=== PATIENT | female | born 1980 | race Caucasian/White ===

== ENCOUNTER 2018-07-03 17:47 | Emergency (ER) | payer BC ==
[2018-07-03] MEDS ORDERED: Sodium Chloride 0.9% 10 ML Syringe FLUSH PRN (18:10)
--- NOTE | 2018-07-03 18:31 | EDM.PDOC ---
ED HPI GENERAL MEDICAL PROBLEM - General Chief Complaint: Gastrointestinal Problem Stated Complaint: abdominal pain Time Seen by Provider: 07/03/18 17:56 Source of Information: Reports: Patient History Limitations: Reports: No Limitations - History of Present Illness INITIAL COMMENTS - FREE TEXT/NARRATIVE: Patient reports partial hysterectomy from last week Tuesday. Ovaries were not removed. Procedure was done laparoscopic and pain has only worsened since surgery. Describes pain to lower abdomen/pelvis that is constant and sharp when sitting down. Has had a bowel movement. She does state she has some nausea today. Slight chills. No chest pain, no shortness of breath. No vaginal bleeding. Surgical sites are dry and intact with no redness. Has been able to eat and drink. Is out of pain medications. Onset: Gradual Duration: Getting Worse Location: Reports: Abdomen Quality: Reports: Sharp, Throbbing Severity: Moderate Worsens with: Reports: Movement Associated Symptoms: Reports: Fever/Chills - Related Data Allergies Allergy/AdvReac Type Severity Reaction Status Date / Time Sulfa (Sulfonamide Allergy Rash Verified 07/03/18 19:14 Antibiotics) Home Meds: Home Meds Desvenlafaxine [Desvenlafaxine ER] 100 mg DAILY 07/03/18 [History] Omeprazole 20 mg DAILY 07/03/18 [History] Topiramate 50 mg DAILY 07/03/18 [History] buPROPion [buPROPion XL] 300 mg DAILY 07/03/18 [History] traZODone HCl [Trazodone HCl] 50 mg BEDTIME 07/03/18 [History] ED ROS GENERAL - Review of Systems Review Of Systems: See Below Constitutional: Reports: Chills HEENT: Reports: No Symptoms Respiratory: Reports: No Symptoms Cardiovascular: Reports: No Symptoms Endocrine: Reports: No Symptoms GI/Abdominal: Reports: Abdominal Pain, Nausea : Reports: No Symptoms Musculoskeletal: Reports: No Symptoms Skin: Reports: No Symptoms Neurological: Reports: No Symptoms Psychiatric: Reports: No Symptoms Hematologic/Lymphatic: Reports: No Symptoms Immunologic: Reports: No Symptoms ED EXAM, GI/ABD - Physical Exam Exam: See Below Exam Limited By: No Limitations General Appearance: Alert, WD/WN, No Apparent Distress Eyes: Bilateral: Normal Appearance, EOMI Ears: Normal TMs Nose: Normal Inspection, Normal Mucosa, No Blood Throat/Mouth: Normal Inspection, Normal Lips, Normal Teeth, Normal Gums, Normal Oropharynx, Normal Voice, No Airway Compromise Head: Atraumatic, Normocephalic Neck: Normal Inspection, Supple, Non-Tender, Full Range of Motion Respiratory/Chest: No Respiratory Distress, Lungs Clear, Normal Breath Sounds, No Accessory Muscle Use, Chest Non-Tender Cardiovascular: Normal Peripheral Pulses, Regular Rate, Rhythm, No Edema, No Gallop, No JVD, No Murmur, No Rub GI/Abdominal Exam: Normal Bowel Sounds, Soft, Tender Back Exam: Normal Inspection, Full Range of Motion, NT Extremities: Normal Inspection, Normal Range of Motion, Non-Tender, Normal Capillary Refill, No Pedal Edema Neurological: Alert, Oriented, CN II-XII Intact, Normal Cognition, Normal Gait, Normal Reflexes, No Motor/Sensory Deficits Psychiatric: Normal Affect, Normal Mood Skin Exam: Wound/Incision (puncture sites are clean, dry and intact, no redness) Lymphatic: No Adenopathy Course - Orders/Labs/Meds Orders: Active Orders 24 hr Category Date Time Status Abdomen Pelvis w Cont [CT] Stat Exams 07/03/18 18:10 Ordered CBC WITH AUTO DIFF [HEME] Stat Lab 07/03/18 18:10 Ordered COMPREHENSIVE METABOLIC PN,CMP [CHEM] Stat Lab 07/03/18 18:10 Ordered LACTIC ACID [CHEM] Stat Lab 07/03/18 18:10 Ordered UA W/MICROSCOPIC [URIN] Stat Lab 07/03/18 18:10 Ordered Sodium Chloride 0.9% [Normal Saline] 1,000 ml Med 07/03/18 18:10 Ordered IV ONETIME Sodium Chloride 0.9% [Saline Flush] Med 07/03/18 18:10 Ordered 10 ml FLUSH ASDIRECTED PRN Saline Lock Insert [OM.PC] Routine Oth 07/03/18 18:10 Ordered Medication Orders Sodium Chloride (Normal Saline) 1,000 mls @ 999 mls/hr IV ONETIME ONE Stop: 07/03/18 19:10 Sodium Chloride (Saline Flush) 10 ml FLUSH ASDIRECTED PRN PRN Reason: Keep Vein Open Meds: Medications Generic Name Dose Route Start Last Admin Trade Name Freq PRN Reason Stop Dose Admin Sodium Chloride 1,000 mls @ 999 mls/hr 07/03/18 18:10 Normal Saline IV 07/03/18 19:10 ONETIME ONE Sodium Chloride 10 ml 07/03/18 18:10 Saline Flush FLUSH ASDIRECTED PRN Keep Vein Open Discontinued Medications Generic Name Dose Route Start Last Admin Trade Name Jaylin PRN Reason Stop Dose Admin Morphine Sulfate 4 mg 07/03/18 18:10 Morphine IVPUSH 07/03/18 18:11 ONETIME ONE Ondansetron HCl 4 mg 07/03/18 18:10 Zofran IVPUSH 07/03/18 18:11 ONETIME ONE - Radiology Interpretation Free Text/Narrative:: CT scan is negative for any acute post operative complications, however, incidental finding of left sided renal cell carcinoma has been identified and patient has been informed and all questions answered. Departure - Departure Time of Disposition: 20:17 Disposition: Home, Self-Care 01 Condition: Good Clinical Impression: Post-op pain, Renal cell carcinoma of left kidney - Discharge Information *PRESCRIPTION DRUG MONITORING PROGRAM REVIEWED*: No *COPY OF PRESCRIPTION DRUG MONITORING REPORT IN PATIENT CLAUDIA: No Instructions: Kidney Cancer Forms: ED Department Discharge Additional Instructions: Plan 1. Take pain medications as needed for comfort 2. Follow up as soon as possible for confirmation of possible left sided kidney cancer 3. Continue to ambulate as much as you can without being overactive and causing additional post operative pain 4. Please call the hospital if you have any questions or concerns 5. I did include some kidney cancer information and sent the CT report with you for Burak to look over - Problem List & Annotations (1) Post-op pain SNOMED Code(s): 150925861 Code(s): G89.18 - OTHER ACUTE POSTPROCEDURAL PAIN Status: Acute Priority : Low Current Visit: Yes (2) Renal cell carcinoma of left kidney SNOMED Code(s): 260595588, 307880219 Code(s): C64.2 - MALIGNANT NEOPLASM OF LEFT KIDNEY, EXCEPT RENAL PELVIS Status: Acute Priority: Medium Current Visit: Yes - Problem List Review Problem List Initiated/Reviewed/Updated: Yes - My Orders Last 24 Hours: My Active Orders 07/03/18 18:10 Abdomen Pelvis w Cont [CT] Stat CBC WITH AUTO DIFF [HEME] Stat COMPREHENSIVE METABOLIC PN,CMP [CHEM] Stat LACTIC ACID [CHEM] Stat UA W/MICROSCOPIC [URIN] Stat Sodium Chloride 0.9% [Normal Saline] 1,000 ml IV ONETIME Sodium Chloride 0.9% [Saline Flush] 10 ml FLUSH ASDIRECTED PRN Saline Lock Insert [OM.PC] Routine - Assessment/Plan Last 24 Hours: My Active Orders 07/03/18 18:10 Abdomen Pelvis w Cont [CT] Stat CBC WITH AUTO DIFF [HEME] Stat COMPREHENSIVE METABOLIC PN,CMP [CHEM] Stat LACTIC ACID [CHEM] Stat UA W/MICROSCOPIC [URIN] Stat Sodium Chloride 0.9% [Normal Saline] 1,000 ml IV ONETIME Sodium Chloride 0.9% [Saline Flush] 10 ml FLUSH ASDIRECTED PRN Saline Lock Insert [OM.PC] Routine Assessment:: post operative pain left renal cell carcinoma Plan: Plan 1. Take pain medications as needed for comfort 2. Follow up as soon as possible for confirmation of possible left sided kidney cancer 3. Continue to ambulate as much as you can without being overactive and causing additional post operative pain 4. Please call the hospital if you have any questions or concerns 5. I did include some kidney cancer information and sent the CT report with you for Burak to look over
[2018-07-03] MEDS: Sodium Chloride 0.9% 1,000 ML IV ONE (18:38)
[2018-07-03] MEDS: Ondansetron 4 MG/2 ML SDV IVPUSH ONE (18:39)
[2018-07-03] MEDS: Morphine 4 MG/ML Syringe IVPUSH ONE (18:40)
[2018-07-03 18:51] LABS: CHLORIDE,CL 106 mmol/L (98-107); SODIUM,NA 142 mmol/L (136-145)
[2018-07-03 18:55] LABS: ANION GAP 15.2 mmol/L (10-20)
[2018-07-03] MEDS: Iopamidol 612 MG/ML 100 ML Bottle IVPUSH ONE (19:15)
[2018-07-03] MEDS: Take Home: Acetaminophen/HYDROcodone 325-10 MG, 5 Tab Pack PO ONE (20:21)
--- NOTE | 2018-07-04 12:00 | CT ---
[id number] CT/CT Abdomen Pelvis W IV EXAM: CT Abdomen Pelvis W IV CLINICAL DATA: POSTOPERATIVE PAIN. RECENT HYSTERECTOMY. COMPARISON: NO PREVIOUS SIMILAR EXAM IS AVAILABLE. FINDINGS: There is no postoperative fluid collection in the pelvis. The uterus has been removed. There are cystic changes of the remaining ovaries. Surgery was last week apparently. Discussion was undertaken with the ordering medical care provider at the time of the exam. There is however a malignant upper pole left renal mass measuring about 6 cm in greatest diameter. The gallbladder has been removed. There is no adenopathy or obvious invasion of the left renal vein. The liver and spleen, aorta, adrenals, pancreas are unremarkable. There is no other pathology in the pelvis. The appendix is thought to be normal. Minimal left inguinal adenopathy is seen. IMPRESSION: NO ACUTE POSTOPERATIVE PATHOLOGY WITH REGARD TO THE RECENT HYSTERECTOMY. INCIDENTAL IDENTIFICATION OF A LEFT-SIDED HYPERNEPHROMA. Brian Johnson MD 07/04/18 [id number] Thank you for allowing us to participate in the care of your patient.
== END 2018-07-03 20:30 | disposition home or self-care (01) ==
LOC: VM.ED 17:47
DX: G89.18 Other acute postprocedural pain (principal); R10.2 Pelvic and perineal pain; C64.2 Malignant neoplasm of left kidney, except renal pelvis; Z90.710 Acquired absence of both cervix and uterus; Z79.899 Other long term (current) drug therapy; Z88.2 Allergy status to sulfonamides
CPT/HCPCS: 74177; 80053; 81001; 83605; 85025; 96361; 96374; 96375; 99284-25; A9270-GY; J2270; J2405; J7030; Q9967

== ENCOUNTER 2018-09-07 21:46 | Emergency (ER) | payer BC ==
[2018-09-07 22:57] LABS: ANION GAP 16.6 mmol/L (10-20)
--- NOTE | 2018-09-07 23:10 | EDM.PDOC ---
ED HPI GENERAL MEDICAL PROBLEM - General Chief Complaint: Abdominal Pain Stated Complaint: PAIN IN LEFT SIDE Time Seen by Provider: 09/07/18 21:50 Source of Information: Reports: Patient History Limitations: Reports: No Limitations - History of Present Illness INITIAL COMMENTS - FREE TEXT/NARRATIVE: Patient comes in to the Emergency Department for complaints of left upper quadrant pain. Patient was involved in a horse riding accident approximate 2 weeks ago. Patient states that she was riding her horse the horse on to the right and she felt to the left falling off a horse.and landing on her left side. She denies hitting or head or sustaining any other injuries. She noted that she had discomforting pain right away to the left upper quadrant area. The pain has continued to progress over the course of the last 2 weeks. She also has a known history of a nephrectomy on the left side approximately 2 months ago. She states with the recent surgery and ongoing discomfort she thought she would come to the emergency department for further medical evaluation regarding her injury/pain. Patient denies having any hematuria, nausea, abdominal distention, vomiting, chest pain, or shortness of breath. Patient also denies any recent fevers or illnesses. Patient states she has not noticed any abnormal discomfort and pain in the flank area where her surgery had occurred. Onset: Sudden, Gradual Location: Reports: Abdomen Quality: Reports: Burning, Throbbing Severity: Moderate Improves with: Reports: Immobilization Worsens with: Reports: Movement Context: Reports: Trauma (riding horse) Treatments DIALYSIS PATIENT CARE TECHNICIAN: Reports: Acetaminophen Left Chest Pain Score (Numeric/FACES): 10 - Related Data Allergies Allergy/AdvReac Type Severity Reaction Status Date / Time Sulfa (Sulfonamide Allergy Rash Verified 09/07/18 21:55 Antibiotics) Home Meds: Home Meds Desvenlafaxine [Desvenlafaxine ER] 100 mg DAILY 07/03/18 [History] Omeprazole 20 mg DAILY 07/03/18 [History] Topiramate 50 mg DAILY 07/03/18 [History] buPROPion [buPROPion XL] 300 mg DAILY 07/03/18 [History] traZODone HCl [Trazodone HCl] 50 mg BEDTIME 07/03/18 [History] Past Medical History Gastrointestinal History: Reports: GERD Neurological History: Reports: Migraines Psychiatric History: Reports: Depression - Past Surgical History GI Surgical History: Reports: Cholecystectomy Female Surgical History: Reports: Section, Hysterectomy ED ROS GENERAL - Review of Systems Review Of Systems: ROS reveals no pertinent complaints other than HPI. Constitutional: Reports: No Symptoms HEENT: Reports: No Symptoms Respiratory: Reports: No Symptoms Cardiovascular: Reports: No Symptoms GI/Abdominal: Reports: Abdominal Pain : Reports: No Symptoms. Denies: Frequency, Incontinence, Irregular Menses, Pain, Urgency Musculoskeletal: Reports: No Symptoms ED EXAM, GENERAL - Physical Exam Exam: See Below Exam Limited By: No Limitations General Appearance: Alert, WD/WN, No Apparent Distress Head: Atraumatic, Normocephalic Neck: Normal Inspection, Supple, Non-Tender, Full Range of Motion Cardiovascular: Normal Peripheral Pulses, Regular Rate, Rhythm GI/Abdominal: Tender (left upper quadrant pain with palpation, ) Extremities: Normal Inspection, Normal Range of Motion, No Pedal Edema, Normal Capillary Refill Neurological: Alert, Oriented, Normal Gait Psychiatric: Normal Affect, Normal Mood Skin Exam: Warm, Dry, Intact Course - Vital Signs Last Recorded V/S: Last Vital Signs Temp 37.3 C 09/07/18 21:57 Pulse 97 09/07/18 21:57 Resp 18 09/07/18 21:57 BP 142/94 H 09/07/18 21:57 Pulse Ox 96 09/07/18 21:57 - Orders/Labs/Meds Orders: Active Orders 24 hr Category Date Time Status Abdomen Pelvis wo Cont [CT] Stat Exams 09/07/18 22:03 Taken Labs: Laboratory Tests 09/07/18 09/07/18 Range/Units 22:26 22:26 WBC 7.4 (4.0-10.0) x10^3/uL RBC 4.32 (4.00-5.50) x10^6/uL Hgb 11.9 L (12.0-16.0) g/dL Hct 36.3 (33.0-47.0) % MCV 84.0 (78.0-93.0) fL MCH 27.5 (26.0-32.0) pg MCHC 32.8 (32.0-36.0) g/dL RDW Coeff of Isaura 13.0 (10.0-15.0) % Plt Count 280 (130-400) x10^3/uL Neut % (Auto) 49.8 L (50.0-80.0) % Lymph % (Auto) 39.5 (25.0-50.0) % Cherry % (Auto) 6.9 (2.0-11.0) % Eos % (Auto) 3.4 (0.0-4.0) % Baso % (Auto) 0.4 (0.2-1.2) % Sodium 141 (136-145) mmol/L Potassium 3.6 (3.5-5.1) mmol/L Chloride 105 (98-107) mmol/L Carbon Dioxide 23 (21-32) mmol/L Anion Gap 16.6 (10-20) mmol/L BUN 26 H (7-18) mg/dL Creatinine 1.8 H (0.55-1.02) mg/dL Est Cr Clr Drug Dosing 38.51 mL/min Estimated GFR (MDRD) 32 Glucose 104 (74-106) mg/dL Calcium 8.6 (8.5-10.1) mg/dL Corrected Calcium 9.08 (8.5-10.1) mg/dL Total Bilirubin 0.2 (0.2-1.0) mg/dL AST 9 L (15-37) U/L ALT 26 (14-59) U/L Alkaline Phosphatase 79 (46-116) U/L Total Protein 7.9 (6.4-8.2) g/dL Albumin 3.4 (3.4-5.0) g/dL Globulin 4.5 Albumin/Globulin Ratio 0.76 Departure - Departure Time of Disposition: 23:05 Disposition: Home, Self-Care 01 Condition: Good Clinical Impression: Abdominal wall contusion Qualifiers: Encounter type: initial encounter Qualified Code(s): S30.1XXA - Contusion of abdominal wall, initial encounter - Discharge Information *PRESCRIPTION DRUG MONITORING PROGRAM REVIEWED*: Not Applicable *COPY OF PRESCRIPTION DRUG MONITORING REPORT IN PATIENT CLAUDIA: Not Applicable Instructions: Contusion, [id number] Referrals: Brielle Pate PA-C [Primary Care Provider] - Forms: ED Department Discharge Additional Instructions: 1. rest 2. Ice the area for 20 mins at a time 3-4 times a day 3. Take tylenol as needed for pain 4. Increase your water intake 5. Follow up with PCP if not feeling better in 2 weeks or sooner if symptoms worsen 6. CT scan did not show and acute injuries and labs were negative 7. Call with any questions or concerns - Problem List Review Problem List Initiated/Reviewed/Updated: Yes - My Orders Last 24 Hours: My Active Orders 09/07/18 22:03 Abdomen Pelvis wo Cont [CT] Stat - Assessment/Plan Last 24 Hours: My Active Orders 09/07/18 22:03 Abdomen Pelvis wo Cont [CT] Stat Assessment:: 1. left upper quadrant abdominal pain Plan: 1. labs completed in ER. Results reviewed with the pt. Negative findings 2. Xray completed in ER. Results reviewed with the pt. Negative findings 3. Education given to the patient regarding injury preventions, increase in water intake, OTC pain management, and follow up care. 4. All questions and concerns addressed prior to discharge
--- NOTE | 2018-09-08 08:46 | CT ---
[id number] CT/CT Abdomen Pelvis WO IV EXAM: CT Abdomen Pelvis WO IV CLINICAL DATA: FALL LEFT SIDE NEPHRECTOMY 1 MONTH AGO. COMPARISON STUDY: None. FINDINGS: Lung bases are clear. The liver is unremarkable. The spleen is enlarged measuring up to 14 cm. The gallbladder surgically absent. The pancreas and adrenal glands are unremarkable. There are the left kidney is surgically absent. The right kidney is unremarkable. No renal stones are identified. No hydronephrosis or hydroureter. The gallbladder is surgically absent. Liver, spleen, gallbladder, pancreas, adrenal glands, and kidneys are unremarkable. No bowel obstruction or inflammation. No lymphadenopathy, free fluid, or pneumoperitoneum. The uterus is surgically absent. Scattered changes of spondylosis the spine. No fracture or osseous lesion. IMPRESSION: 1. No acute CT findings within the abdomen or pelvis to explain the patient's symptoms. Piyush Angela DO 09/08/18 0845 Thank you for allowing us to participate in the care of your patient.
== END 2018-09-07 23:10 | disposition home or self-care (01) ==
LOC: VM.ED 21:46
DX: S30.1XXA Contusion of abdominal wall, initial encounter (principal); K21.9 Gastro-esophageal reflux disease without esophagitis; F32.9 Major depressive disorder, single episode, unspecified; V80.010A Animal-rider injured by fall from or being thrown from horse in noncollision accident, initial encounter; Z88.2 Allergy status to sulfonamides; Z79.899 Other long term (current) drug therapy
CPT/HCPCS: 36415; 74176; 80053; 85025; 99284-25

== ENCOUNTER 2018-11-02 18:37 | Emergency (ER) | payer BC, MEDICAID ==
[2018-11-02] MEDS ORDERED: Ondansetron 4 MG/2 ML SDV IVPUSH ONE (19:12)
[2018-11-02] MEDS ORDERED: Sodium Chloride 0.9% 10 ML Syringe FLUSH PRN (19:12)
[2018-11-02] MEDS ORDERED: Sodium Chloride 0.9% 1,000 ML IV SCH (19:15)
--- NOTE | 2018-11-02 19:29 | EDM.PDOC ---
ED HPI GENERAL MEDICAL PROBLEM - General Chief Complaint: Headache Stated Complaint: PAIN AND HEADACHE AFTER INJECTION Time Seen by Provider: 11/02/18 19:05 Source of Information: Reports: Patient History Limitations: Reports: No Limitations - History of Present Illness INITIAL COMMENTS - FREE TEXT/NARRATIVE: Patient presents with complaints of frontal headache, neck pain, nausea. She does have a diagnosed bulged disc between C6-C7. Was seen at the pain clinic this AM for pain injection. [place] fine until 12 noon today. At that time she began having severe headache, neck pain, nausea, sweating, fever. No chest pain , no change in neuro status. Denies abdominal pain. Does have abdominal hernia. Recent surgery to remove left kidney due to cancer. She did tolerate this, however she states the neck pain and hernia are a result secondary to surgery. She Did take extra strength tylenol [employer]. This was non effective. Onset: Today, Sudden Duration: Getting Worse Location: Reports: Head, Neck Severity: Moderate Improves with: Reports: None Worsens with: Reports: Movement Associated Symptoms: Reports: Diaphoresis, Fever/Chills, Headaches Frontal Headache Pain Score (Numeric/FACES): 10 - Related Data Allergies Allergy/AdvReac Type Severity Reaction Status Date / Time Sulfa (Sulfonamide Allergy Rash Verified 11/02/18 19:03 Antibiotics) lobster Allergy Rash Uncoded 11/02/18 19:02 Home Meds: Home Meds Desvenlafaxine [Desvenlafaxine ER] 100 mg PO DAILY 07/03/18 [History] Omeprazole 20 mg PO DAILY 07/03/18 [History] Topiramate 25 mg PO BEDTIME 07/03/18 [History] buPROPion [buPROPion XL] 300 mg PO DAILY 07/03/18 [History] traZODone HCl [Trazodone HCl] 1 - 2 tab PO BEDTIME 07/03/18 [History] Furosemide [Lasix] 20 mg PO DAILY PRN 11/02/18 [History] Gabapentin [Neurontin] 100 mg PO ASDIRECTED 11/02/18 [History] Ondansetron [Zofran ODT] 4 mg PO Q4H PRN 11/02/18 [History] Past Medical History Gastrointestinal History: Reports: GERD Neurological History: Reports: Migraines Psychiatric History: Reports: Anxiety, Depression - Past Surgical History GI Surgical History: Reports: Cholecystectomy Female Surgical History: Reports: Section, Hysterectomy, Nephrectomy Social & Family History - Tobacco Use Smoking Status *Q: Never Smoker - Recreational Drug Use Recreational Drug Use: No ED ROS GENERAL - Review of Systems Review Of Systems: See Below Constitutional: Reports: Fever, Diaphoresis Respiratory: Reports: No Symptoms Cardiovascular: Reports: No Symptoms Endocrine: Reports: No Symptoms GI/Abdominal: Reports: No Symptoms : Reports: No Symptoms Musculoskeletal: Reports: Neck Pain Skin: Reports: Diaphoresis Neurological: Reports: Headache Psychiatric: Reports: No Symptoms Hematologic/Lymphatic: Reports: No Symptoms Immunologic: Reports: No Symptoms - Physical Exam Exam: See Below Exam Limited By: No Limitations General Appearance: Alert, WD/WN, Anxious, Mild Distress Eye Exam: Bilateral Eye: EOMI, Normal Inspection, PERRL Ears: Normal TMs Nose: Normal Inspection, Normal Mucosa, No Blood Throat/Mouth: Normal Inspection, Normal Lips, Normal Teeth, Normal Gums, Normal Oropharynx, Normal Voice, No Airway Compromise Head Exam: Atraumatic, Normocephalic Neck: Normal Inspection Respiratory/Chest: No Respiratory Distress, Lungs Clear, Normal Breath Sounds, No Accessory Muscle Use, Chest Non-Tender Cardiovascular: Normal Peripheral Pulses, Regular Rate, Rhythm, No Edema, No Gallop, No JVD, No Murmur, No Rub GI/Abdominal: Normal Bowel Sounds, Soft, Non-Tender, No Organomegaly, No Distention, No Abnormal Bruit, No Mass Neuro Exam (Abbreviated): Alert, Oriented, CN II-XII Intact, Normal Cognition, Normal Gait, Normal Reflexes, No Motor/Sensory Deficits Back Exam: Normal Inspection, Full Range of Motion, NT Extremities: Normal Inspection, Normal Range of Motion, Non-Tender, No Pedal Edema, Normal Capillary Refill Psychiatric: Normal Affect, Normal Mood Skin Exam: Wound/Incision (injection site to left anterior neck. C/D/I, covered with bandage. No erythema, swelling, ) Course - Vital Signs Last Recorded V/S: Last Vital Signs Temp 37.5 C 11/02/18 18:45 Pulse 124 H 11/02/18 18:45 Resp 18 11/02/18 18:45 BP 140/76 11/02/18 18:45 Pulse Ox 96 11/02/18 18:45 - Orders/Labs/Meds Orders: Active Orders 24 hr Category Date Time Status Cervical Spine wo Cont [CT] Stat Exams 11/02/18 19:05 Ordered Head wo Cont [CT] Stat Exams 11/02/18 19:05 Ordered CULTURE BLOOD [BC] Stat Lab 11/02/18 19:55 Ordered CULTURE BLOOD [BC] Stat Lab 11/02/18 19:55 Ordered Sodium Chloride 0.9% [Normal Saline] 1,000 ml Med 11/02/18 19:15 Ordered IV ASDIRECTED Sodium Chloride 0.9% [Saline Flush] Med 11/02/18 19:12 Ordered 10 ml FLUSH ASDIRECTED PRN Blood Culture x2 Reflex Set [OM.PC] Stat Oth 11/02/18 19:55 Ordered Saline Lock Insert [OM.PC] Routine Oth 11/02/18 19:12 Ordered Medication Orders Sodium Chloride (Normal Saline) 1,000 mls @ 999 mls/hr IV ASDIRECTED ALHAJI Last Admin: 11/02/18 19:42 Dose: 999 mls/hr Sodium Chloride (Saline Flush) 10 ml FLUSH ASDIRECTED PRN PRN Reason: Keep Vein Open Labs: Laboratory Tests 11/02/18 11/02/18 11/02/18 Range/Units 19:15 19:15 19:15 WBC 10.4 H (4.0-10.0) x10^3/uL RBC 4.67 (4.00-5.50) x10^6/uL Hgb 12.9 (12.0-16.0) g/dL Hct 38.8 (33.0-47.0) % MCV 83.1 (78.0-93.0) fL MCH 27.6 (26.0-32.0) pg MCHC 33.2 (32.0-36.0) g/dL RDW Coeff of Isaura 13.4 (10.0-15.0) % Plt Count 261 (130-400) x10^3/uL Neut % (Auto) 92.4 H (50.0-80.0) % Lymph % (Auto) 6.8 L (25.0-50.0) % [place] % (Auto) 0.7 L (2.0-11.0) % Eos % (Auto) 0.0 (0.0-4.0) % Baso % (Auto) 0.1 L (0.2-1.2) % Sodium 138 (136-145) mmol/L Potassium 3.9 (3.5-5.1) mmol/L Chloride 103 (98-107) mmol/L Carbon Dioxide 20 L (21-32) mmol/L Anion Gap 18.9 (10-20) mmol/L BUN 20 H (7-18) mg/dL Creatinine 1.4 H (0.55-1.02) mg/dL Est Cr Clr Drug Dosing 49.51 mL/min Estimated GFR (MDRD) 42 Glucose 216 H (74-106) mg/dL Lactic Acid 3.0 H* (0.4-2.0) mmol/L Calcium 9.1 (8.5-10.1) mg/dL Corrected Calcium 9.42 (8.5-10.1) mg/dL Total Bilirubin 0.3 (0.2-1.0) mg/dL AST 5 L (15-37) U/L ALT 26 (14-59) U/L Alkaline Phosphatase 64 (46-116) U/L C-Reactive Protein 0.4 (<=0.9) mg/dL Total Protein 7.9 (6.4-8.2) g/dL Albumin 3.6 (3.4-5.0) g/dL Globulin 4.3 Albumin/Globulin Ratio 0.84 Urine Color (YELLOW) Urine Appearance (CLEAR) Urine pH (5.0-8.0) Ur Specific [place] Urine Protein (NEGATIVE) mg/dL Urine Glucose (UA) (NEGATIVE) mg/dL Urine Ketones (NEGATIVE) mg/dL Urine Occult Blood (NEGATIVE) Urine Nitrite (NEGATIVE) Urine Bilirubin (NEGATIVE) Urine Urobilinogen (0.2) EU/dL Ur Leukocyte Esterase (NEGATIVE) Urine RBC (NOT SEEN) /HPF Urine WBC (NOT SEEN) /HPF Ur Squamous Epith Cells (NEGATIVE) /HPF Urine Bacteria (NEGATIVE) /HPF Urine Mucus (NEGATIVE) /LPF 11/02/18 Range/Units 19:38 WBC (4.0-10.0) x10^3/uL RBC (4.00-5.50) x10^6/uL Hgb (12.0-16.0) g/dL Hct (33.0-47.0) % MCV (78.0-93.0) fL MCH (26.0-32.0) pg MCHC (32.0-36.0) g/dL RDW Coeff of Isaura (10.0-15.0) % Plt Count (130-400) x10^3/uL Neut % (Auto) (50.0-80.0) % Lymph % (Auto) (25.0-50.0) % [place] % (Auto) (2.0-11.0) % Eos % (Auto) (0.0-4.0) % Baso % (Auto) (0.2-1.2) % Sodium (136-145) mmol/L Potassium (3.5-5.1) mmol/L Chloride (98-107) mmol/L Carbon Dioxide (21-32) mmol/L Anion Gap (10-20) mmol/L BUN (7-18) mg/dL Creatinine (0.55-1.02) mg/dL Est Cr Clr Drug Dosing mL/min Estimated GFR (MDRD) Glucose (74-106) mg/dL Lactic Acid (0.4-2.0) mmol/L Calcium (8.5-10.1) mg/dL Corrected Calcium (8.5-10.1) mg/dL Total Bilirubin (0.2-1.0) mg/dL AST (15-37) U/L ALT (14-59) U/L Alkaline Phosphatase (46-116) U/L C-Reactive Protein (<=0.9) mg/dL Total Protein (6.4-8.2) g/dL Albumin (3.4-5.0) g/dL Globulin Albumin/Globulin Ratio Urine Color Yellow (YELLOW) Urine Appearance Clear (CLEAR) Urine pH 5.5 (5.0-8.0) Ur Specific [place] 1.010 Urine Protein Negative (NEGATIVE) mg/dL Urine Glucose (UA) 500 H (NEGATIVE) mg/dL Urine Ketones Trace H (NEGATIVE) mg/dL Urine Occult Blood Negative (NEGATIVE) Urine Nitrite Negative (NEGATIVE) Urine Bilirubin Negative (NEGATIVE) Urine Urobilinogen 0.2 (0.2) EU/dL Ur Leukocyte Esterase Negative (NEGATIVE) Urine RBC Not seen (NOT SEEN) /HPF Urine WBC Not seen (NOT SEEN) /HPF Ur Squamous Epith Cells Rare (NEGATIVE) /HPF Urine Bacteria Not seen (NEGATIVE) /HPF Urine Mucus Not seen (NEGATIVE) /LPF Meds: Medications Generic Name Dose Route Start Last Admin Trade Name Freq PRN Reason Stop Dose Admin Sodium Chloride 1,000 mls @ 999 mls/hr 11/02/18 19:15 11/02/18 19:42 Normal Saline IV 999 mls/hr ASDIRECTED ALHAJI Administration Sodium Chloride 10 ml 11/02/18 19:12 Saline Flush FLUSH ASDIRECTED PRN Keep Vein Open Discontinued Medications Generic Name Dose Route Start Last Admin Trade Name Freq PRN Reason Stop Dose Admin Ceftriaxone Sodium 1 gm 11/02/18 20:06 11/02/18 20:22 Rocephin IVPUSH 11/02/18 20:07 1 gm STAT ONE Administration Diphenhydramine HCl 25 mg 11/02/18 20:07 11/02/18 20:19 Benadryl IVPUSH 11/02/18 20:08 25 mg ONETIME ONE Administration Lorazepam 1 mg 11/02/18 20:26 11/02/18 20:46 Ativan IVPUSH 11/02/18 20:27 1 mg STAT ONE Administration Methylprednisolone Sodium Succinate 40 mg 11/02/18 20:06 11/02/18 20:20 Solu-Medrol IVPUSH 11/02/18 20:07 40 mg ONETIME ONE Administration Morphine Sulfate 2 mg 11/02/18 20:06 11/02/18 20:21 Morphine IVPUSH 11/02/18 20:07 2 mg ONETIME ONE Administration Ondansetron HCl 4 mg 11/02/18 19:12 11/02/18 19:42 Zofran IVPUSH 11/02/18 19:13 4 mg ONETIME ONE Administration - Radiology Interpretation Free Text/Narrative:: CT head and neck negative for acute process - Re-Assessments/Exams Free Text/Narrative Re-Assessment/Exam: 11/02/18 21:14 Patient started complaining of right cheek numbness and swelling. Additional neuro exam performed, no new neuro deficits. Departure - Departure Time of Disposition: 21:34 Disposition: DC/Tfer to Acute Hospital 02 Condition: Good Clinical Impression: Headache - Discharge Information *PRESCRIPTION DRUG MONITORING PROGRAM REVIEWED*: No *COPY OF PRESCRIPTION DRUG MONITORING REPORT IN PATIENT CLAUDIA: No Referrals: Brielle Pate PA-C [Primary Care Provider] - Forms: ED Department Discharge, Interfacility Transfer EMTALA ED Communication - ED Communication Date/Time Date: 11/02/18 Time Called: 21:19 - Discussed Case With (1) Discussed Case With (1): Admitting Provider (Discussed case with Dr. Campos in ED, Dr. Sahu with neurology and Dr. Huber from pain clinics. Will send patient for additional imaging to rule out vaculature involvement.) - My Orders Last 24 Hours: My Active Orders 11/02/18 19:05 Cervical Spine wo Cont [CT] Stat Head wo Cont [CT] Stat 11/02/18 19:12 Sodium Chloride 0.9% [Saline Flush] 10 ml FLUSH ASDIRECTED PRN Saline Lock Insert [OM.PC] Routine 11/02/18 19:15 Sodium Chloride 0.9% [Normal Saline] 1,000 ml IV ASDIRECTED 11/02/18 19:55 CULTURE BLOOD [BC] Stat CULTURE BLOOD [BC] Stat Blood Culture x2 Reflex Set [OM.PC] Stat - Assessment/Plan Last 24 Hours: My Active Orders 11/02/18 19:05 Cervical Spine wo Cont [CT] Stat Head wo Cont [CT] Stat 11/02/18 19:12 Sodium Chloride 0.9% [Saline Flush] 10 ml FLUSH ASDIRECTED PRN Saline Lock Insert [OM.PC] Routine 11/02/18 19:15 Sodium Chloride 0.9% [Normal Saline] 1,000 ml IV ASDIRECTED 11/02/18 19:55 CULTURE BLOOD [BC] Stat CULTURE BLOOD [BC] Stat Blood Culture x2 Reflex Set [OM.PC] Stat
[2018-11-02 19:55] LABS: ANION GAP 18.9 mmol/L (10-20)
[2018-11-02] MEDS ORDERED: methylPREDNISolone Sodium Succinate 40 MG/1 ML SDV IVPUSH ONE (20:06)
[2018-11-02] MEDS ORDERED: cefTRIAXone 1 GM Vial IVPUSH ONE (20:06)
[2018-11-02] MEDS ORDERED: Morphine 2 MG/ML Syringe IVPUSH ONE (20:06)
[2018-11-02] MEDS ORDERED: diphenhydrAMINE 50 MG/ML SDV IVPUSH ONE (20:07)
[2018-11-02] MEDS ORDERED: LORazepam 2 MG/ML SDV IVPUSH ONE (20:26)
--- NOTE | 2018-11-03 07:49 | CT ---
[id number] CT/CT Cervical Spine WO IV Exam: CT Cervical Spine WO IV CLINICAL DATA: RECENT INJECTION, HEADACHE. COMPARISON: None. FINDINGS: No fracture or subluxation is seen. The C1-C2 articulation is unremarkable. The prevertebral soft tissues are within normal limits. Straightening of normal cervical lordosis with mild degenerative changes most pronounced at C6-C7. There are a few foci of air which appear to be in the epidural space at the level of C6. IMPRESSION: NO ACUTE FRACTURE OR SUBLUXATION. A FEW FOCI OF AIR WHICH APPEAR TO BE IN THE EPIDURAL SPACE AT THE LEVEL OF C6 MAY BE RELATED TO RECENT SPINAL INJECTION GIVEN THE PATIENT'S HISTORY. Piyush Angela DO 11/03/18 0748 Thank you for allowing us to participate in the care of your patient.
--- NOTE | 2018-11-03 15:57 | CT ---
[id number] CT/CT Head WO IV EXAM: CT Head WO IV CLINICAL DATA: HEADACHE, RECENT CERVICAL INJECTION COMPARISON STUDY: None FINDINGS: No intracranial hemorrhage, extra-axial fluid collection, mass, or acute ischemia. Soft tissues are unremarkable. Paranasal sinuses and mastoid air cells are clear. IMPRESSION: No acute intracranial findings. Piyush Angela DO 11/03/18 1556 Thank you for allowing us to participate in the care of your patient.
== END 2018-11-02 21:40 | disposition short-term general hospital (02) ==
LOC: VM.ED 18:37
DX: R51 Headache (principal); R11.0 Nausea; K21.9 Gastro-esophageal reflux disease without esophagitis; F41.9 Anxiety disorder, unspecified; F32.9 Major depressive disorder, single episode, unspecified; Z79.899 Other long term (current) drug therapy; Z88.2 Allergy status to sulfonamides; Z91.013 Allergy to seafood
CPT/HCPCS: 36415; 70450; 72125; 80053; 81001; 83605; 85025; 86140; 87040; 96361; 96374; 96375; 99285; J0696; J1200; J2060; J2270; J2405; J2920; J7030

== ENCOUNTER 2020-12-12 21:08 | Emergency (ER) | payer BC, MEDICAID ==
--- NOTE | 2020-12-12 21:36 | EDM.PDOC ---
ED HPI GENERAL MEDICAL PROBLEM - General Chief Complaint: Abdominal Pain Stated Complaint: NOT FEELING WELL Time Seen by Provider: 12/12/20 21:20 Source of Information: Reports: Patient History Limitations: Reports: No Limitations - History of Present Illness INITIAL COMMENTS - FREE TEXT/NARRATIVE: Cris is a 40 year old female who presents to ER with complaints of nausea/vomi ting and diarrhea since 0800 this am. Now having abdominal pressure and soreness in her lower abdomen. Denies any fevers. No blood in her stools. Has not eaten today but has been trying to push fluids today. Was having trouble keeping anything down. Took a nausea pill that she had at home but didn't seem to be effective. Denies any cough, shortness of breath or chest discomfort. Has low back pain. Worried as she only has one kidney as other was removed due to kidney cancer. No urinary complaints. Onset: Today, Gradual Duration: Hour(s):, Waxing/Waning Location: Reports: Abdomen Quality: Reports: Ache Severity: Moderate Improves with: Reports: None Associated Symptoms: Reports: Fever/Chills, Loss of Appetite, Malaise, Nausea/Vomiting. Denies: Confusion, Chest Pain, Cough, Shortness of Breath - Related Data Allergies Allergy/AdvReac Type Severity Reaction Status Date / Time Sulfa (Sulfonamide Allergy Rash Verified 11/02/18 19:03 Antibiotics) lobster Allergy Rash Uncoded 11/02/18 19:02 Home Meds: Home Meds Desvenlafaxine [Desvenlafaxine ER] 100 mg PO DAILY 07/03/18 [History] Omeprazole 20 mg PO DAILY 07/03/18 [History] Topiramate 25 mg PO BEDTIME 07/03/18 [History] buPROPion [buPROPion XL] 300 mg PO DAILY 07/03/18 [History] traZODone HCl [Trazodone HCl] 1 - 2 tab PO BEDTIME 07/03/18 [History] Furosemide [Lasix] 20 mg PO DAILY PRN 11/02/18 [History] Gabapentin [Neurontin] 100 mg PO ASDIRECTED 11/02/18 [History] Ondansetron [Zofran ODT] 4 mg PO Q4H PRN 11/02/18 [History] Past Medical History Gastrointestinal History: Reports: GERD Neurological History: Reports: Migraines Psychiatric History: Reports: Anxiety, Depression - Past Surgical History GI Surgical History: Reports: Cholecystectomy Female Surgical History: Reports: Section, Hysterectomy, Nephrectomy Social & Family History - Tobacco Use Tobacco Use Status *Q: Unknown Ever Used Tobacco ED ROS GENERAL - Review of Systems Review Of Systems: See Below Constitutional: Reports: Chills, Malaise, Fatigue, Decreased Appetite. Denies: Fever, Weakness HEENT: Denies: Ear Pain, Sinus Problem, Throat Pain, Vertigo Respiratory: Denies: Shortness of Breath, Cough Cardiovascular: Denies: Chest Pain, Edema, Lightheadedness Endocrine: Denies: Fatigue GI/Abdominal: Reports: Abdominal Pain, Diarrhea, Nausea, Vomiting. Denies: Black Stool, Bloody Stool : Reports: Flank Pain. Denies: Dysuria, Frequency, Hematuria Musculoskeletal: Reports: Back Pain Skin: Reports: No Symptoms Neurological: Reports: No Symptoms Psychiatric: Reports: No Symptoms ED EXAM, GI/ABD - Physical Exam Exam: See Below Exam Limited By: No Limitations General Appearance: Alert, WD/WN, No Apparent Distress Ears: Normal External Exam, Normal TMs Nose: Normal Inspection, Normal Mucosa, No Blood Throat/Mouth: Normal Inspection, Normal Oropharynx Head: Normocephalic Neck: Normal Inspection, Supple, Non-Tender Respiratory/Chest: No Respiratory Distress, Lungs Clear, Normal Breath Sounds Cardiovascular: Regular Rate, Rhythm GI/Abdominal Exam: Normal Bowel Sounds, Soft, Tender (bilateral lower quadrants but mildly throughout) Extremities: Normal Inspection, No Pedal Edema Neurological: Alert, Oriented Skin Exam: Warm, Dry Course - Orders/Labs/Meds Orders: Active Orders 24 hr Category Date Time Status Abdomen 2V AP Flat Upright [CR] Stat Exams 12/12/20 22:32 Ordered Sodium Chloride 0.9% [Normal Saline] 1,000 ml Med 12/12/20 21:45 Active IV ASDIRECTED Medication Orders Sodium Chloride (Normal Saline) 1,000 mls @ 250 mls/hr IV ASDIRECTED ALHAJI Labs: Laboratory Tests 12/12/20 12/12/20 12/12/20 Range/Units 21:47 21:47 22:00 WBC 8.2 (4.0-10.0) x10^3/uL RBC 5.15 (4.00-5.50) x10^6/uL Hgb 15.0 D (12.0-16.0) g/dL Hct 43.6 (33.0-47.0) % MCV 84.7 (78.0-93.0) fL MCH 29.1 (26.0-32.0) pg MCHC 34.4 (32.0-36.0) g/dL RDW Coeff of Isaura 12.9 (10.0-15.0) % Plt Count 206 (130-400) x10^3/uL Neut % (Auto) 85.8 H (50.0-80.0) % Lymph % (Auto) 7.2 L (25.0-50.0) % [place] % (Auto) 6.0 (2.0-11.0) % Eos % (Auto) 0.9 (0.0-4.0) % Baso % (Auto) 0.1 L (0.2-1.2) % Sodium 137 (136-145) mmol/L Potassium 3.7 (3.5-5.1) mmol/L Chloride 106 (98-107) mmol/L Carbon Dioxide 22 (21-32) mmol/L Anion Gap 12.7 (5-15) mmol/L BUN 23 H (7-18) mg/dL Creatinine 1.2 H (0.55-1.02) mg/dL Est Cr Clr Drug Dosing TNP Estimated GFR (MDRD) 50 Glucose 117 H (70-99) mg/dL Calcium 8.1 L (8.5-10.1) mg/dL Corrected Calcium 8.5 (8.5-10.1) mg/dL Total Bilirubin 0.7 (0.2-1.0) mg/dL AST 16 (15-37) U/L ALT 30 (14-59) U/L Alkaline Phosphatase 50 (46-116) U/L C-Reactive Protein 2.7 H (<=0.9) mg/dL Total Protein 7.8 (6.4-8.2) g/dL Albumin 3.5 (3.4-5.0) g/dL Globulin 4.3 Albumin/Globulin Ratio 0.81 Amylase 25 (25-115) U/L Lipase 68 L (73-393) U/L Urine Color Dark yellow H (YELLOW) Urine Appearance Clear (CLEAR) Urine pH 5.5 (5.0-8.0) Ur Specific [place] >=1.030 Urine Protein Negative (NEGATIVE) mg/dL Urine Glucose (UA) Negative (NEGATIVE) mg/dL Urine Ketones Negative (NEGATIVE) mg/dL Urine Occult Blood Negative (NEGATIVE) Urine Nitrite Negative (NEGATIVE) Urine Bilirubin Negative (NEGATIVE) Urine Urobilinogen 0.2 (0.2) EU/dL Ur Leukocyte Esterase Negative (NEGATIVE) Urine HCG, Qual (NEGATIVE) 12/12/20 Range/Units 22:00 WBC (4.0-10.0) x10^3/uL RBC (4.00-5.50) x10^6/uL Hgb (12.0-16.0) g/dL Hct (33.0-47.0) % MCV (78.0-93.0) fL MCH (26.0-32.0) pg MCHC (32.0-36.0) g/dL RDW Coeff of Isaura (10.0-15.0) % Plt Count (130-400) x10^3/uL Neut % (Auto) (50.0-80.0) % Lymph % (Auto) (25.0-50.0) % [place] % (Auto) (2.0-11.0) % Eos % (Auto) (0.0-4.0) % Baso % (Auto) (0.2-1.2) % Sodium (136-145) mmol/L Potassium (3.5-5.1) mmol/L Chloride (98-107) mmol/L Carbon Dioxide (21-32) mmol/L Anion Gap (5-15) mmol/L BUN (7-18) mg/dL Creatinine (0.55-1.02) mg/dL Est Cr Clr Drug Dosing Estimated GFR (MDRD) Glucose (70-99) mg/dL Calcium (8.5-10.1) mg/dL Corrected Calcium (8.5-10.1) mg/dL Total Bilirubin (0.2-1.0) mg/dL AST (15-37) U/L ALT (14-59) U/L Alkaline Phosphatase (46-116) U/L C-Reactive Protein (<=0.9) mg/dL Total Protein (6.4-8.2) g/dL Albumin (3.4-5.0) g/dL Globulin Albumin/Globulin Ratio Amylase (25-115) U/L Lipase (73-393) U/L Urine Color (YELLOW) Urine Appearance (CLEAR) Urine pH (5.0-8.0) Ur Specific [place] Urine Protein (NEGATIVE) mg/dL Urine Glucose (UA) (NEGATIVE) mg/dL Urine Ketones (NEGATIVE) mg/dL Urine Occult Blood (NEGATIVE) Urine Nitrite (NEGATIVE) Urine Bilirubin (NEGATIVE) Urine Urobilinogen (0.2) EU/dL Ur Leukocyte Esterase (NEGATIVE) Urine HCG, Qual Negative (NEGATIVE) Meds: Medications Generic Name Dose Route Start Last Admin Trade Name Freq PRN Reason Stop Dose Admin Sodium Chloride 1,000 mls @ 250 mls/hr 12/12/20 21:45 Normal Saline IV ASDIRECTED ALHAJI Discontinued Medications Generic Name Dose Route Start Last Admin Trade Name Freq PRN Reason Stop Dose Admin Ondansetron HCl 4 mg 12/12/20 21:41 Ondansetron 4 Mg/2 Ml Sdv IVPUSH 12/12/20 21:42 ONETIME ONE Ondansetron HCl 1 packet 12/12/20 23:32 Take Home: Ondansetron 4 Mg Tab.Dis, 2 Tab Pack PO 12/12/20 23:33 ONETIME ONE - Re-Assessments/Exams Free Text/Narrative Re-Assessment/Exam: 12/13/20 Zofran given due to nausea. IV fluids started due to vomiting and diarrhea. Specific gravity high on urine as well. Lab results unremarkable. BUN and creatinine mildly elevated. UA clear. WBC normal. CRP 2.7, mildly elevated. Xray negative. Patient informed of lab results. Will discharge home on Zofran. Return if increasing pain, fever or persistent vomiting. Departure - Departure Time of Disposition: 23:30 Disposition: Home, Self-Care 01 Condition: Good Clinical Impression: Gastroenteritis - Discharge Information *PRESCRIPTION DRUG MONITORING PROGRAM REVIEWED*: No *COPY OF PRESCRIPTION DRUG MONITORING REPORT IN PATIENT CLAUDIA: No Instructions: Viral Gastroenteritis, Adult, [id number] Referrals: Brielle Pate PA-C [Primary Care Provider] - Forms: ED Department Discharge Additional Instructions: 1. Push fluids 2. [place] diet 3. Zofran 4 mg every 6 hours as needed for nausea 4. Return if increased pain, fever or persisting nausea/vomiting 5. Call with any questions or concerns. - My Orders Last 24 Hours: My Active Orders 12/12/20 21:45 Sodium Chloride 0.9% [Normal Saline] 1,000 ml IV ASDIRECTED 12/12/20 22:32 Abdomen 2V AP Flat Upright [CR] Stat - Assessment/Plan Last 24 Hours: My Active Orders 12/12/20 21:45 Sodium Chloride 0.9% [Normal Saline] 1,000 ml IV ASDIRECTED 12/12/20 22:32 Abdomen 2V AP Flat Upright [CR] Stat
[2020-12-12] MEDS: Sodium Chloride 0.9% 1,000 ML IV SCH (22:05)
[2020-12-12] MEDS: Ondansetron 4 MG/2 ML SDV IVPUSH ONE (22:05)
[2020-12-12 22:13] LABS: ANION GAP 12.7 mmol/L (5-15); CHLORIDE,CL 106 mmol/L (98-107); SODIUM,NA 137 mmol/L (136-145)
[2020-12-13] MEDS: Take Home: Ondansetron 4 MG Tab.DIS, 2 Tab Pack PO ONE (00:20)
--- NOTE | 2020-12-13 08:59 | CR ---
[id number] RAD/RAD Abd Flat and Upright 2V Exam: RAD Abd Flat and Upright 2V Clinical Data: ABDOMINAL PAIN COMPARISON: CORRELATION IS MADE WITH THE CAT SCAN OF SEPTEMBER 07, 2018 FINDINGS: There is no bowel obstruction or free air The gallbladder has been removed Other surgical changes are seen There are no pathologic calcifications IMPRESSION: NO ACUTE PLAIN FILM ABNORMALITY Brian Johnson MD 12/13/20 0858 Thank you for allowing us to participate in the care of your patient.
== END 2020-12-13 00:20 | disposition home or self-care (01) ==
LOC: VM.ED 21:08
DX: K52.9 Noninfective gastroenteritis and colitis, unspecified (principal); K21.9 Gastro-esophageal reflux disease without esophagitis; Z88.2 Allergy status to sulfonamides; Z91.013 Allergy to seafood; Z90.49 Acquired absence of other specified parts of digestive tract; Z79.899 Other long term (current) drug therapy
CPT/HCPCS: 74019; 80053; 81003; 81025; 82150; 83690; 85025; 86140; 99283; A9270; J2405; J7030; 96374; 99284-25

== ENCOUNTER 2020-12-28 15:50 | Emergency (ER) | payer MEDICAID ==
[2020-12-28] MEDS ORDERED: Ketorolac 30 MG/ML SDV IM ONE (16:16)
[2020-12-28] MEDS ORDERED: predniSONE 20 MG Tab PO ONE (16:17)
[2020-12-28] MEDS ORDERED: Orphenadrine 60 MG/2 ML Inj IM ONE (16:17)
[2020-12-28] MEDS ORDERED: Take Home: predniSONE 20 MG, 2 Tab Pack PO ONE (16:17)
--- NOTE | 2020-12-28 16:26 | EDM.PDOC ---
ED HPI GENERAL MEDICAL PROBLEM - General Chief Complaint: Back Pain or Injury Stated Complaint: LOWER BACK PAIN Time Seen by Provider: 12/28/20 16:10 Source of Information: Reports: Patient History Limitations: Reports: No Limitations - History of Present Illness INITIAL COMMENTS - FREE TEXT/NARRATIVE: Patient comes into the emergency department with complaints of lower back pain. Patient states that she was picking up a child on Tuesday and ended up having a severe lower back spasm and tingling sensation down the left leg thigh region down to the great toe. Patient states is been tender and discomforting most of the weekend. She states that it does feel like is getting little bit better however she has ongoing issues and concerns of the lower back discomfort despite using Tylenol and Flexeril that she has at home.Patient states she is also missed work due to the pain and discomfort. She states that it is a throbbing muscle spasm sensation Onset: Today Location: Reports: Back Quality: Reports: Ache, Throbbing Severity: Moderate Improves with: Reports: Rest Worsens with: Reports: Movement Context: Reports: Other Associated Symptoms: Reports: No Other Symptoms - Related Data Allergies Allergy/AdvReac Type Severity Reaction Status Date / Time Sulfa (Sulfonamide Allergy Rash Verified 12/28/20 16:25 Antibiotics) lobster Allergy Rash Uncoded 12/28/20 16:25 Home Meds: Home Meds Desvenlafaxine [Desvenlafaxine ER] 100 mg PO DAILY 07/03/18 [History] Omeprazole 20 mg PO DAILY 07/03/18 [History] Topiramate 25 mg PO BEDTIME 07/03/18 [History] buPROPion [buPROPion XL] 300 mg PO DAILY 07/03/18 [History] traZODone HCl [Trazodone HCl] 1 - 2 tab PO BEDTIME 07/03/18 [History] Furosemide [Lasix] 20 mg PO DAILY PRN 11/02/18 [History] Gabapentin [Neurontin] 100 mg PO ASDIRECTED 11/02/18 [History] Ondansetron [Zofran ODT] 4 mg PO Q4H PRN 11/02/18 [History] Cyclobenzaprine [Flexeril] 10 mg PO TID #15 tab 12/28/20 [Rx] predniSONE [Prednisone] 20 mg PO DAILY 5 Days #5 tablet 12/28/20 [Rx] Past Medical History Gastrointestinal History: Reports: GERD Neurological History: Reports: Migraines Psychiatric History: Reports: Anxiety, Depression - Past Surgical History GI Surgical History: Reports: Cholecystectomy Female Surgical History: Reports: Section, Hysterectomy, Nephrectomy ED ROS GENERAL - Review of Systems Review Of Systems: Comprehensive ROS is negative, except as noted in HPI. Constitutional: Reports: No Symptoms HEENT: Reports: No Symptoms Respiratory: Reports: No Symptoms Cardiovascular: Reports: No Symptoms Endocrine: Reports: No Symptoms GI/Abdominal: Reports: No Symptoms : Reports: No Symptoms Musculoskeletal: Reports: Back Pain Skin: Reports: No Symptoms Neurological: Reports: No Symptoms Psychiatric: Reports: No Symptoms Hematologic/Lymphatic: Reports: No Symptoms Immunologic: Reports: No Symptoms ED EXAM, GENERAL - Physical Exam Exam: See Below Exam Limited By: No Limitations General Appearance: Alert, WD/WN, No Apparent Distress Head: Atraumatic, Normocephalic Neck: Normal Inspection, Supple, Non-Tender Respiratory/Chest: No Respiratory Distress, Lungs Clear, Chest Non-Tender Cardiovascular: Normal Peripheral Pulses, Regular Rate, Rhythm, No Edema Back Exam: Muscle Spasm Extremities: Normal Inspection, Normal Range of Motion, Non-Tender, Normal Capillary Refill Neurological: Alert, Oriented, Normal Gait Psychiatric: Normal Affect, Normal Mood Skin Exam: Warm, Dry, Intact Departure - Departure Time of Disposition: 16:40 Disposition: Home, Self-Care 01 Condition: Good Clinical Impression: Sciatic leg pain - Discharge Information *PRESCRIPTION DRUG MONITORING PROGRAM REVIEWED*: Not Applicable *COPY OF PRESCRIPTION DRUG MONITORING REPORT IN PATIENT CLAUDIA: Not Applicable Instructions: Sciatica, [id number] Referrals: Brielle Pate PA-C [Primary Care Provider] - Forms: ED Department Discharge Additional Instructions: 1. rest 2. take prednisone daily for 5 days 3. Continue all at home medications 4. Activity and diet as tolerated 5. Can take over the counter Tylenol for any pain or discomfort 6. use ice or heat for 20 minutes at a time 3-4 times a day 7. Follow up with PCP if symptoms continue, return, or progress 8. Call with any questions or concerns - Assessment/Plan Assessment:: 1. back pain 2. sciatica Plan: 1. Ice Applied to the affected area 2. Medication offered to the patient- Toradol given IM 3. Prednisone 20mg PO given in the ER. 4. Norflex given IM 5. script sent with pt for steroids 6. Education regarding splinting, activity, [id number] medications, and follow-up care provided. 7. All questions and concerns addressed with the patient prior to discharge
== END 2020-12-28 17:06 | disposition home or self-care (01) ==
LOC: VM.ED 15:50
DX: M79.652 Pain in left thigh (principal); M54.42 Lumbago with sciatica, left side; K21.9 Gastro-esophageal reflux disease without esophagitis; Z79.899 Other long term (current) drug therapy; Z88.2 Allergy status to sulfonamides; Z88.8 Allergy status to other drugs, medicaments and biological substances
CPT/HCPCS: 96372; 99283; J1885; J2360; J7512

== ENCOUNTER 2021-06-10 12:53 | Emergency (ER) | payer MEDICAID | END 2021-06-10 13:39 | disposition home or self-care (01) | LOC: VM.ED 12:53 | DX: S61.211A Laceration without foreign body of left index finger without damage to nail, initial encounter (principal); K21.9 Gastro-esophageal reflux disease without esophagitis; Z88.2 Allergy status to sulfonamides; Z88.8 Allergy status to other drugs, medicaments and biological substances; Z79.899 Other long term (current) drug therapy; W23.0XXA Caught, crushed, jammed, or pinched between moving objects, initial encounter | CPT/HCPCS: 12001; 99282-25 ==

== ENCOUNTER 2024-12-31 17:22 | Emergency (ER) | payer MEDICAID | END 2024-12-31 18:07 | disposition home or self-care (01) | LOC: VM.ED 17:22 | DX: L72.3 Sebaceous cyst (principal); K21.9 Gastro-esophageal reflux disease without esophagitis; Z79.899 Other long term (current) drug therapy; Z88.2 Allergy status to sulfonamides; Z88.8 Allergy status to other drugs, medicaments and biological substances; Z90.710 Acquired absence of both cervix and uterus; Z90.49 Acquired absence of other specified parts of digestive tract | CPT/HCPCS: 99283; A9270 ==